=== PATIENT | female | born 1935 | race Caucasian/White ===

== ENCOUNTER 2021-10-22 09:43 | Outpatient (CLI) | payer MEDICARE, BC | END 2021-10-22 09:44 | disposition home or self-care (01) | LOC: CSHCT 09:43 | PROVIDERS: ATTEND Internal Medicine Cardiovascular Disease | DX: Z01.810 Encounter for preprocedural cardiovascular examination (principal); I48.0 Paroxysmal atrial fibrillation; K92.2 Gastrointestinal hemorrhage, unspecified | CPT/HCPCS: 71275; 80053; 85027; 85610; U0003; U0005 ==